=== PATIENT | male | born 1980 | race Two or more races ===

== ENCOUNTER 2018-05-18 12:27 | Outpatient (CLI) | payer OTHER | END 2018-05-18 12:37 | disposition home or self-care (01) | LOC: RAD 501 12:27 | DX: M79.642 Pain in left hand (principal) ==

== ENCOUNTER → 2024-12-13 09:03 | Outpatient (CLI) | payer OTHER ==
[2024-12-13 10:11] LABS: HEMATOCRIT 39.2 % (39.0-48.0); HEMOGLOBIN 13.4 g/dL (13-16.00); MEAN CELL VOLUME 90.6 fL (80.0-100.00); MEAN CORPUSCULAR HEMOGLOBIN 30.9 pg (27.00-32.0); MEAN CORPUSCULAR HGB CONC 34.1 g/dl (32.0-36.0); PLATELET COUNT 203 K/uL (150-450); RED BLOOD COUNT 4.33 M/uL (4.00-6.00); RED CELL DISTRIBUTION WIDTH 15.8 % (11.5-14.5)
[2024-12-13 10:25] LABS: ALBUMIN 4.1 gm/dL (3.4-5.0); BILIRUBIN TOTAL 0.5 mg/dL (0.3-1.2); CALCIUM 9.3 mg/dL (8.5-10.1); CREATININE SERUM 0.94 mg/dL (0.70-1.30); GFR 86.4; GLOBULINA 3.1 G/DL (2.4-3.5); POTASSIUM 4.34 mEq/L (3.5-5.1); TOTAL PROTEIN 7.2 gm/dL (6.4-8.2)
[2024-12-13 10:31] LABS: ERYTHROCYTE SEDIMENTATION RATE 2 mm/hr
[2024-12-14 08:08] LABS: hav igm Negative (Negative); hcv Non Reactive (Non Reactive); hep b c Negative (Negative); hep b s ag Negative (Negative)
== END | disposition home or self-care (01) ==
LOC: LAB 09:03
PROVIDERS: ATTEND Orthopaedic Surgery
DX: M05.79 Rheumatoid arthritis with rheumatoid factor of multiple sites without organ or systems involvement (principal); K75.9 Inflammatory liver disease, unspecified

== ENCOUNTER 2025-03-16 08:18 | Outpatient (CLI) | payer OTHER | END 2025-03-16 08:38 | disposition home or self-care (01) | LOC: SONOGRAMA 08:18 | PROVIDERS: ATTEND Chiropractor | DX: M25.511 Pain in right shoulder (principal) ==